=== PATIENT | female | born 1935 | race Caucasian/White ===

== ENCOUNTER → 2016-10-11 | Outpatient (CLI) | payer MEDICARE, BC | LOC: US 09:50 | DX: R33.9 Retention of urine, unspecified (principal) | CPT/HCPCS: 76856 ==

== ENCOUNTER 2016-11-11 12:08 | Emergency (ER) | payer MEDICARE, BC ==
[2016-11-11 13:54] LABS: HEMOGLOBIN 13.1 gm/dl (12.3-15.3); RED BLOOD COUNT 4.77 M/UL (4.00-5.10); WHITE BLOOD COUNT 5.3 K/UL (4.5-11.0)
== END 2016-11-11 16:40 | disposition home or self-care (01) ==
LOC: ER1 12:08
PROVIDERS: Physician Assistant Medical
DX: E86.0 Dehydration (principal); B34.9 Viral infection, unspecified; I25.2 Old myocardial infarction; E11.22 Type 2 diabetes mellitus with diabetic chronic kidney disease; E78.5 Hyperlipidemia, unspecified; I12.9 Hypertensive chronic kidney disease with stage 1 through stage 4 chronic kidney disease, or unspecified chronic kidney disease; N18.9 Chronic kidney disease, unspecified; Z88.5 Allergy status to narcotic agent; Z79.82 Long term (current) use of aspirin; Z79.84 Long term (current) use of oral hypoglycemic drugs; Z79.02 Long term (current) use of antithrombotics/antiplatelets; Z79.899 Other long term (current) drug therapy
CPT/HCPCS: 36415; 71020; 80053; 81001; 82150; 83605; 83690; 83880; 84484; 85025; 93005; 94640; 94664; 96360; 96372; 99285

== ENCOUNTER → 2016-12-31 | Outpatient (CLI) | payer MEDICARE, BC | LOC: CT 13:31 | PROVIDERS: Internal Medicine Cardiovascular Disease | DX: I77.9 Disorder of arteries and arterioles, unspecified (principal); I87.323 Chronic venous hypertension (idiopathic) with inflammation of bilateral lower extremity; Z98.62 Peripheral vascular angioplasty status | CPT/HCPCS: 36415; 80048 ==